=== PATIENT | female | born 1990 | race African-American/Black ===

== ENCOUNTER 2018-04-02 21:21 | Emergency (ER) | payer OTHER ==
[2018-04-03] MEDS ORDERED: Sulfamethox/Trimethoprim DS 800/160* TAB PO ONE (00:53)
--- NOTE | 2018-04-03 00:53 | ED ---
Skin Complaint - HPI Summary HPI Summary: 28-year-old female presents with a bug bite to her left lower abdomen for the past week. She states that she got bit by a spider. States that they opened up and started drainage. She states it was pus like drainage. She denies any fevers. She denies any spreading redness. She denies any history of MRSA. Has no medical conditions. - History of Current Complaint Chief Complaint: EDGeneral Time Seen by Provider: 04/03/18 00:32 Stated Complaint: INSECT BITE Pain Intensity: 2 - Allergy/Home Medications Allergies/Adverse Reactions: Allergies Allergy/AdvReac Type Severity Reaction Status Date / Time No Known Allergies Allergy Verified 04/02/18 21:36 PMH/Surg Hx/FS Hx/Imm Hx Endocrine/Hematology History: Denies: Hx Anticoagulant Therapy Respiratory History: Denies: Hx Asthma Infectious Disease History: No Infectious Disease History: Denies: Traveled Outside the [place] in Last 30 Days - Family History Known Family History: Negative: Diabetes - Social History Alcohol Use: Rare Substance Use Type: Reports: None Smoking Status (MU): Never Smoked Tobacco Review of Systems Negative: Fever Negative: Chest Pain Negative: Shortness Of Breath Positive: Rash All Other Systems Reviewed And Are Negative: Yes Physical Exam Triage Information Reviewed: Yes Vital Signs On Initial Exam: Initial Vitals Temp Pulse Resp BP Pulse Ox 98.6 F 95 15 137/70 100 04/02/18 21:32 04/02/18 21:32 04/02/18 21:32 04/02/18 21:32 04/02/18 21:32 Vital Signs Reviewed: Yes Appearance: Positive: Well-Appearing Skin: Positive: Warm, Dry, Other - 1 cm open area on left lower abdomen with some drainage. No erythema surrounding. Some induration around the wound. Head/Face: Positive: Normal Head/Face Inspection Eyes: Positive: Normal, Conjunctiva Clear ENT: Positive: Pharynx normal Respiratory/Lung Sounds: Positive: Clear to Auscultation, Breath Sounds Present Cardiovascular: Positive: Normal, RRR Abdomen Description: Positive: Nontender, Soft Bowel Sounds: Positive: Present Musculoskeletal: Positive: Normal Neurological: Positive: Normal Psychiatric: Positive: Normal Diagnostics - Vital Signs Vital Signs Temp Pulse Resp BP Pulse Ox 04/02/18 21:32 98.6 F 95 15 137/70 100 - Laboratory Lab Statement: Any lab studies that have been ordered have been reviewed, and results considered in the medical decision making process. Course/Dx - Course Course Of Treatment: 28-year-old female presents with a bug bite to her left lower abdomen for the past week. She states that she got bit by a spider. States that they opened up and started drainage. She states it was pus like drainage. She denies any fevers. She denies any spreading redness. She denies any history of MRSA. Has no medical conditions. on exam 1cm open area left side abdomen that is draining. No signs of cellulitis. We'll place on Bactrim to ensure that has MRSA coverage as needed. Told to place heat on the area. Patient understands agrees with plan. - Differential Diagnoses - Skin Complaint Differential Diagnoses: Abscess, Cellulitis, Contact Dermatitis - Diagnoses Provider Diagnoses: Abscess Discharge - Sign-Out/Discharge Documenting (check all that apply): Patient Departure - Discharge Plan Condition: Good Disposition: HOME Prescriptions: Sulfamethox/Trimethoprim DS* [Bactrim DS 800/160 TAB*] 1 tab PO BID #13 tab Patient Education Materials: Abscess (ED) Referrals: [facility] [place] [facility] [Outside] Additional Instructions: Take antibiotic twice a day for 7 days, first dose given in ED Apply warm compresses to area Take ibuprofen or Tylenol for pain every 6 hours Follow up with primary Return to ED if develop fever, area of redness spreads, or any new or worsening symptoms - Billing Disposition and Condition Condition: GOOD Disposition: Home
[2018-04-03 01:17] VITALS: BP 127/73
== END 2018-04-03 01:17 | disposition home or self-care (01) ==
LOC: ED 21:21
DX: L02.211 Cutaneous abscess of abdominal wall (principal); R21 Rash and other nonspecific skin eruption
CPT/HCPCS: 99282; A9270-GY